=== PATIENT | female | born 1965 | race Caucasian/White ===

== ENCOUNTER 2016-11-17 15:07 | Emergency (ER) | payer OTHER ==
[2016-11-17 15:14] VITALS: BP 142/92; PULSE 88; RESP 18; TEMP 98; O2SAT 97
[2016-11-17] MEDS ORDERED: KETOROLAC 30 MG/1 ML SDV IM ONE (15:24)
--- NOTE | 2016-11-17 15:28 | EDPHY ---
H & P Time Seen by Provider: 11/17/16 15:17 HPI/ROS: CHIEF COMPLAINT: Left lateral chest pain HISTORY OF PRESENT ILLNESS: 51-year-old female states that 2 days ago she stumbled while she was going from the garage into her house and landed striking her left chest wall, laterally, on the edge of the steps. She has been complaining of moderate left lateral chest wall pain with some radiation to underneath her breast. Pain is much worse with breathing or certain movements. She denies any anterior chest pain. She does feel short of breath because it hurts to take a deep breath. She denies head injury, loss consciousness, neck pain, back pain, abdominal pain, hematuria, dysuria, lightheadedness, dizziness , or fainting. She was otherwise well prior to the event. She does not take blood thinners. REVIEW OF SYSTEMS: Aside from elements discussed in the HPI, a comprehensive 10-point review of systems was reviewed and is negative. PAST MEDICAL HISTORY: Status post hysterectomy. SOCIAL HISTORY: Works as a nurse. VITAL SIGNS: Reviewed by me; see NN. GENERAL: Well-developed, well-nourished, uncomfortable when having to move. Significant discomfort when taking a deep breath.. HEENT: Head: Atraumatic, normocephalic. Face: Atraumatic. PERRL, EOMI, no nystagmus. No oral trauma or mouth trauma. Neck: Nontender to palpation, no pain with range of motion, no adenopathy. CHEST: Significant tenderness the left axilla and lateral left chest wall. No crepitus. No ecchymosis. Tenderness along the rib and chest wall under the left breast. LUNGS: Clear to auscultation bilaterally, breath sounds are equal. No crepitus auscultated. CARDIAC: Regular rate and rhythm, no rubs, murmurs or gallops. ABDOMEN: Soft, nontender, nondistended, bowel sounds normal. BACK: Mild left CVA tenderness. No midline spinal tenderness. No ecchymosis. EXTREMITIES: No trauma noted, normal range of motion. PULSES: 2+ and equal throughout. NEURO: Alert and oriented x3, cranial nerves are intact throughout, normal motor , normal sensation. SKIN: Warm and dry, no rash. Smoking Status: Current every day smoker Constitutional: Initial Vital Signs Temperature (C) 36.6 C 11/17/16 15:11 Heart Rate 88 11/17/16 15:11 Respiratory Rate 18 11/17/16 15:11 Blood Pressure 142/92 H 11/17/16 15:11 O2 Sat (%) 97 11/17/16 15:11 O2 Delivery Mode Room Air Allergies/Adverse Reactions: No Known Allergies Allergy (Unverified 11/17/16 15:11) Home Medications: Medication Instructions Recorded Effexor 11/17/16 Lisinopril-Hctz 10-12.5 mg Tab 11/17/16 oxyCODONE/APAP 5/325 [Percocet 1 tab PO QID PRN #20 tab 11/17/16 5/325 (*)] Medical Decision Making - Diagnostics Imaging Results: Imaging Impressions Ribs w/Chest X-Ray 11/17/16 15:24 Impression: 1. Acute nondisplaced left 9th rib fracture. 2. Equivocal lateral 10th rib fracture. 3. No pneumothorax or effusion. Imaging: I viewed and interpreted images myself ED Course/Re-evaluation: 51-year-old female presenting with isolated trauma to the left lateral chest wall. X-ray demonstrates no pneumothorax. She does have a fracture of the left 9th rib with minimal displacement. Urinalysis has no blood. Patient was given instructions regarding nonsteroidals, pain medication, and incentive spirometry. She was given a work excuse for the next 3 days. Differential Diagnosis: Differential diagnosis of this patient's injury was considered including but not limited to fracture, rib fracture, pneumothorax, intra-abdominal trauma, splenic injury, contusion. - Data Points Laboratory Results: 11/17/16 15:45 Urine Color YELLOW Urine Appearance CLEAR Urine pH 6.5 (5.0-7.5) Ur Specific [place] 1.025 (1.002-1.030) Urine Protein NEGATIVE (NEGATIVE) Urine Ketones TRACE H (NEGATIVE) Urine Blood NEGATIVE (NEGATIVE) Urine Nitrate NEGATIVE (NEGATIVE) Urine Bilirubin NEGATIVE (NEGATIVE) Urine Urobilinogen 0.2 EU EU (0.2-1.0) Ur Leukocyte Esterase NEGATIVE (NEGATIVE) Urine Glucose NEGATIVE (NEGATIVE) Medications Given: Discontinued Medications Ketorolac Tromethamine (Toradol) 30 mg IM EDNOW ONE Stop: 11/17/16 15:25 Last Admin: 11/17/16 15:28 Dose: 30 mg Departure - Departure Disposition: Home, Routine, Self-Care Clinical Impression: Chest wall pain Closed rib fracture Qualifiers: Encounter type: initial encounter Rib fracture type: single rib Laterality: left Qualified Code(s): S22.32XA - Fracture of one rib, left side, initial encounter for closed fracture Condition: Good Instructions: How to Use an Incentive Spirometer (ED), Rib Fracture (ED) Additional Instructions: I recommend Ibuprofen (Motrin, Advil) or Naproxen Sodium (Aleve) for pain and anti-inflammatory effects. You may take either one, but do not take both. Your dose is: Ibuprofen 600 mg every 6-8 hours with food. OR Naproxen Sodium (Aleve) 220 mg every 12 hours. You may find that applying ice to the area of most discomfort will be helpful. Heating pad may also be helpful at this point. Okay to use hydrocodone if needed for more severe pain. Please use the incentive spirometer as directed. It is important for you to take frequent, deep breaths to prevent the development of pneumonia. Off work for the next 2 days. If you are unable to return to work on November 20, please follow up with your primary care physician for re-evaluation. Referrals: NONE *PRIMARY CARE P,. [Primary Care Provider] - As per Instructions Stand Alone Forms: Work Excuse Prescriptions: oxyCODONE/APAP 5/325 [Percocet 5/325 (*)] 1 tab PO QID PRN #20 tab PRN Reason: Pain
[2016-11-17 16:01] LABS: COLOR YELLOW; LEUKOCYTE ESTERASE,URINE NEGATIVE (NEGATIVE); NITRITE,URINE NEGATIVE (NEGATIVE); PH,URINE 6.5 (5.0-7.5)
== END 2016-11-17 16:08 | disposition home or self-care (01) ==
LOC: CED 15:07
DX: S22.32XA Fracture of one rib, left side, initial encounter for closed fracture (principal); F17.200 Nicotine dependence, unspecified, uncomplicated; W22.8XXA Striking against or struck by other objects, initial encounter; Y92.015 Private garage of single-family (private) house as the place of occurrence of the external cause
CPT/HCPCS: 71101-PO; 81003-PO; J1885